=== PATIENT | female | born 1945 | race Caucasian/White ===

== ENCOUNTER 2016-10-19 04:50 | Emergency (ER) | payer MEDICARE, MEDICAID ==
--- NOTE | 2016-10-19 05:30 | EDM.PDOC ---
ED HPI ENT - General Chief Complaint: ENT Problem Stated Complaint: nosebleed Time Seen by Provider: 10/19/16 05:15 Source of Information: Reports: Patient History Limitations: Reports: No limitations - History of Present Illness INITIAL COMMENTS - FREE TEXT/NARRATIVE: PT STATES SHE HAS HAD A COUPLE NOSEBLEEDS OVER LAST FEW DAYS. USING NASAL SPRAY FOR CONGESTION. BLEEDING STARTED AGAIN THIS MORNING AND NURSING FACILITY CALLED EMS. EMS TRANSPORTED TO ER WITHOUT INCIDENT. BLEEDING STOPPED IN ROUTE. PT TAKING XARELTO. DENIES TRAUMA, WALKER, FEVER, SOB, CP, OR BLEEDING ANYWHERE ELSE Timing/Duration: Reports: Gradual onset, Intermittent, Resolved prior to arrival Severity: mild Location: Reports: right nares, left nares Worsens with: Reports: Medication Associated Symptoms: Reports: no other symptoms - Related Data Allergies/ADRs: Allergies Allergy/AdvReac Type Severity Reaction Status Date / Time No Known Drug Allergies Allergy Other Verified 04/20/16 15:18 Home Meds: Home Meds Acetaminophen [Pain Relief] 325 mg PO Q4H PRN 04/08/14 [History] Aspirin [Ecotrin] 325 mg PO DAILY@1200 04/08/14 [History] Digoxin [Lanoxin] 125 mcg PO DAILY 04/08/14 [History] FLUoxetine [PROzac] 40 mg PO DAILY 04/08/14 [History] Ferrous Sulfate 325 mg PO BID@1200,1800 04/08/14 [History] Furosemide [Lasix] 40 mg PO BID@0800,1200 04/08/14 [History] Lisinopril [Prinivil] 2.5 mg PO DAILY 04/08/14 [History] Metoprolol Tartrate 25 mg PO DAILY@1200 04/08/14 [History] Nystatin 15 gm TP BID PRN 04/08/14 [History] Nystatin/Triamcinolone Crm [Mycolog Crm] 30 gm TOP BID PRN 04/08/14 [History] Potassium Chloride 10 meq PO DAILY 04/08/14 [History] Bismuth Subsalicylate [Pepto-Bismol] 15 ml PO DAILY PRN 04/07/15 [History] Warfarin [Coumadin] 2.5 mg PO ASDIRECTED@1800 04/07/15 [History] atorvaSTATin [Lipitor] 10 mg PO 1800 04/08/15 [History] Acetaminophen [Acetaminophen Extra Strength] 500 mg PO QID PRN 04/20/16 [History ] Allopurinol [Zyloprim] 100 mg PO DAILY 04/20/16 [History] ClonazePAM [KlonoPIN] 0.5 mg PO BEDTIME 04/20/16 [History] Dextran 70/Hypromellose [Artificial Tears] 1 drop EYEBOTH DAILY 04/20/16 [ History] Glycerin/Propylene Glycol [Artificial Tears Drops] 1 drop EYEBOTH DAILY PRN 09/04 [History] Insulin Detemir [Levemir Flextouch] 70 unit SQ 0800,199904/20/16 [History] Insulin Lispro [Humalog Kwikpen U-100] 2 - 10 units SQ TIDMEALS PRN 04/20/16 [ History] Insulin Lispro [Humalog] 8 unit SQ TIDMEALS 04/20/16 [History] Liraglutide [Victoza] 1.8 mg SUBCUT 199904/20/16 [History] Loperamide [Imodium] 2 mg PO ASDIRECTED 04/20/16 [History] Multivitamin with Minerals [Multivitamins with Minerals] 1 each PO DAILY [History] Phytonadione [Vitamin K] 100 mcg PO DAILY 04/20/16 [History] hydrOXYzine HCl [Atarax] 25 mg PO TID PRN 04/20/16 [History] Levofloxacin [Levaquin] 500 mg PO Q24H #3 tablet 04/23/16 [Rx] Past Medical History HEENT History: Reports: Other (see below) 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 Cardiovascular History: Reports: Afib Musculoskeletal History: Reports: Back pain, chronic Endocrine/Metabolic History: Reports: Diabetes, type II Hematologic History: Reports: Anemia Dermatologic History: Reports: Cellulitis - Infectious Disease History Infectious Disease History: Reports: Chicken pox, Measles, Mumps - Past Surgical History Endocrine Surgical History: Reports: None Musculoskeletal Surgical History: Reports: None Dermatological Surgical History: Reports: None Social & Family History - Family History Family Medical History: Noncontributory - Tobacco Use Smoking Status *Q: Former Smoker Years of Tobacco use: 4 Used Tobacco, but Quit: Yes Month Tobacco Last Used: Aug 2010 - Alcohol Use Days Per Week of Alcohol Use: 1 Number of Drinks Per Day: 0 Total Drinks Per Week: 0 - Recreational Drug Use Recreational Drug Use: No ED ROS ENT - Review of Systems Review Of Systems: ROS reveals no pertinent complaints other than HPI. Constitutional: Reports: no symptoms HEENT: Reports: Other (EPISTAXIS) Cardiovascular: Reports: No symptoms Endocrine: Reports: no symptoms GI/Abdominal: Reports: No symptoms : Reports: no symptoms Musculoskeletal: Reports: no symptoms Skin: Reports: no symptoms Neurological: Reports: no symptoms Psychiatric: Reports: No symptoms Hematologic/Lymphatic: Reports: no symptoms Immunologic: Reports: no symptoms ED EXAM, ENT - Physical Exam Exam: See Below Exam Limited By: No limitations General Appearance: alert, WD/WN, no apparent distress Eye Exam: bilateral eye: normal inspection Nose: dried blood, other (NO SITE OF ACTIVE BLEED AND NO POSTERIOR BLEED NOTED) . No: active bleeding Mouth/Throat: Normal inspection Head: atraumatic, normocephalic Respiratory/Chest: no respiratory distress, lungs clear, normal breath sounds Cardiovascular: regular rate, rhythm GI/Abdominal: normal bowel sounds, soft, non tender Neurological: alert, oriented, normal cognition Psychiatric: normal affect, normal mood Skin: Warm, Dry, Intact, Normal color, No rash Lymphatic: no adenopathy Course - Vital Signs Last Recorded V/S: Last Vital Signs Temp 98.4 F 10/19/16 05:08 Pulse 63 10/19/16 05:08 Resp 18 10/19/16 05:08 BP 124/49 L 10/19/16 05:08 Pulse Ox 98 10/19/16 05:08 - Re-Assessments/Exams Free Text/Narrative Re-Assessment/Exam: 10/19/16 05:31 NONPETROLEUM LUBRICANT APPLIED. BLEEDING RESOLVED. PT AFEBRILE, NONTOXIC APPEARING. WILL SEND HER BACK TO NURSING FACILITY WITH SUGGESTION TO LIMIT NASAL SPRAY AND USE LUBRICANTS IN [place]AR[place] Departure - Departure Time of Disposition: 05:33 Disposition: DC/Tfer to [facility] Condition: good Clinical Impression: Acute anterior epistaxis Instructions: Nosebleed, [id number] Forms: ED Department Discharge Additional Instructions: LIMIT USE OF NASAL SPRAYS AND USE LUBRICANTS TO NARES PRN
== END 2016-10-19 06:50 ==
LOC: KA.ED 04:50
CPT/HCPCS: 99282; 99283

== ENCOUNTER 2019-05-30 08:54 | Emergency (ER) | payer MEDICARE, MEDICAID ==
[2019-05-30 09:47] LABS: ANION GAP 15.3 mmol/L (5-15); CHLORIDE,CL 107 mmol/L (98-115); SODIUM,NA 146 mmol/L (136-145)
--- NOTE | 2019-05-30 10:12 | EDM.PDOC ---
ED HPI GENERAL MEDICAL PROBLEM - General Chief Complaint: General Stated Complaint: DOESNT FEEL WELL-NAUSEATED Time Seen by Provider: 05/30/19 10:03 Source of Information: Reports: Patient, Intermediate Records History Limitations: Reports: Altered Mental Status (Dementia at baseline) - History of Present Illness INITIAL COMMENTS - FREE TEXT/NARRATIVE: Patient is a 74-year-old female who presents to the emergency department this morning via EMS from [address] [place] [address]. Per nursing staff at the facility, they stated that patient had bad odor to her urine and seemed to becoming more confused. I did not receive a phone call from the provider who authorized transfer. Patient presents to the ER with underlying dementia, obvious confusion, no fever. Patient denies chest pain, abdominal pain, or shortness of breath. Onset: Gradual Duration: Day(s): Improves with: Reports: None Worsens with: Reports: None Associated Symptoms: Reports: No Other Symptoms. Denies: Fever/Chills - Related Data Allergies Allergy/AdvReac Type Severity Reaction Status Date / Time No Known Drug Allergies Allergy Other Verified 05/30/19 09:39 Home Meds: Home Meds Acetaminophen [Pain Relief] 325 mg PO Q4H PRN 04/08/14 [History] Aspirin [Ecotrin EC] 325 mg PO DAILY@1200 04/08/14 [History] Digoxin [Lanoxin] 125 mcg PO DAILY 04/08/14 [History] FLUoxetine [PROzac] 40 mg PO DAILY 04/08/14 [History] Ferrous Sulfate 325 mg PO BID@1200,1800 04/08/14 [History] Furosemide [Lasix] 40 mg PO BID@0800,1200 04/08/14 [History] Lisinopril [Prinivil] 2.5 mg PO DAILY 04/08/14 [History] Metoprolol Tartrate 25 mg PO DAILY@1200 04/08/14 [History] Nystatin 15 gm TP BID PRN 04/08/14 [History] Nystatin/Triamcinolone Crm [Mycolog Crm] 30 gm TOP BID PRN 04/08/14 [History] Potassium Chloride 10 meq PO DAILY 04/08/14 [History] Bismuth Subsalicylate [Pepto-Bismol] 15 ml PO DAILY PRN 04/07/15 [History] atorvaSTATin [Lipitor] 10 mg PO 1800 08/20/15 [History] Allopurinol [Zyloprim] 100 mg PO DAILY 04/20/16 [History] ClonazePAM [KlonoPIN] 0.5 mg PO BEDTIME 04/20/16 [History] Dextran 70/Hypromellose [Artificial Tears] 1 drop EYEBOTH DAILY 04/20/16 [ History] Glycerin/Propylene Glycol [Artificial Tears Drops] 1 drop EYEBOTH DAILY PRN 09/04 [History] Liraglutide [Victoza] 1.8 mg SUBCUT 2000 04/20/16 [History] Loperamide [Imodium] 2 mg PO ASDIRECTED 04/20/16 [History] Multivitamin with Minerals [Multivitamins with Minerals] 1 each PO DAILY [History] ClonazePAM [KlonoPIN] 0.5 mg PO DAILY PRN 10/19/16 [History] Insulin Glarg,Human.Rec.Analog [LantUS Solostar] 70 units SUBCUT BID 10/19/16 [ History] Rivaroxaban [Xarelto] 20 mg PO DAILY 10/19/16 [History] Triamcinolone Acetonide [Kenalog 0.1% Crm] 1 applic TOP BID 10/19/16 [History] Cephalexin [Keflex] 500 mg PO TID #21 capsule 05/30/19 [Rx] Past Medical History HEENT History: Reports: Other (See Below) 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 Cardiovascular History: Reports: Afib Genitourinary History: Reports: UTI, Recurrent [employer] History: Reports: Dysfunctional Uterine Bleeding Musculoskeletal History: Reports: Back Pain, Chronic Psychiatric History: Reports: Anxiety Endocrine/Metabolic History: Reports: Diabetes, Type II Hematologic History: Reports: Anemia Dermatologic History: Reports: Cellulitis - Infectious Disease History Infectious Disease History: Reports: Chicken Pox, Measles, Mumps - Past Surgical History Cardiovascular Surgical History: Reports: Other (See Below) Social & Family History - Family History Family Medical History: Noncontributory - Tobacco Use Smoking Status *Q: Former Smoker Used Tobacco, but Quit: Yes Month/Year Tobacco Last Used: na Second Hand Smoke Exposure: No - Caffeine Use Caffeine Use: Reports: Soda - Recreational Drug Use Recreational Drug Use: No ED ROS GENERAL - Review of Systems Review Of Systems: ROS reveals no pertinent complaints other than HPI. Constitutional: Reports: No Symptoms HEENT: Reports: No Symptoms Respiratory: Reports: No Symptoms Cardiovascular: Reports: No Symptoms Endocrine: Reports: No Symptoms GI/Abdominal: Reports: No Symptoms : Reports: Other (Urine odor) Musculoskeletal: Reports: No Symptoms Skin: Reports: No Symptoms Neurological: Reports: Confusion, Pre-Existing Deficit Psychiatric: Reports: No Symptoms Hematologic/Lymphatic: Reports: No Symptoms ED EXAM, GENERAL - Physical Exam Exam: See Below Exam Limited By: Altered Mental Status (Dementia at baseline) General Appearance: Alert, WD/WN, No Apparent Distress Throat/Mouth: Normal Inspection, Normal Oropharynx, No Airway Compromise Head: Atraumatic, Normocephalic Respiratory/Chest: No Respiratory Distress, Lungs Clear, Normal Breath Sounds, No Accessory Muscle Use, Chest Non-Tender Cardiovascular: Irregularly Irregular (Chronic A. fib) GI/Abdominal: Normal Bowel Sounds, Soft, Non-Tender Back Exam: Normal Inspection. No: CVA Tenderness (L), CVA Tenderness (R) Extremities: Normal Inspection, No Pedal Edema Neurological: Alert, Confused, Other (Baseline dementia) Psychiatric: Normal Affect, Normal Mood Skin Exam: Warm, Dry, Intact, Normal Color, No Rash Course - Vital Signs Last Recorded V/S: Last Vital Signs Temp 97.7 F 05/30/19 08:55 Pulse 85 05/30/19 08:55 Resp 16 05/30/19 08:55 BP 138/83 05/30/19 08:55 Pulse Ox 96 05/30/19 08:55 - Orders/Labs/Meds Orders: Active Orders 24 hr Category Date Time Status CULTURE URINE [RM] Routine Lab 05/30/19 09:15 Received Labs: Laboratory Tests 05/30/19 05/30/19 05/30/19 Range/Units 09:15 09:15 09:15 WBC 11.19 H (5.00-10.00) 10^3/uL RBC 3.94 (3.80-5.50) 10^6/uL Hgb 12.0 (12.0-16.0) g/dL Hct 36.3 L (37.0-47.0) % MCV 92.1 H D (82.0-92.0) fL MCH 30.5 (27.0-31.0) pg MCHC 33.1 (32.0-36.0) g/dL RDW 13.5 (11.5-14.5) % Plt Count 218 (150-400) 10^3/uL MPV 9.6 (7.4-10.4) fL Immature Gran % (Auto) 0.2 (0.0-5.0) % Neut % (Auto) 83.3 H (50.0-70.0) % Lymph % (Auto) 9.7 L (20.0-40.0) % [place] % (Auto) 6.4 (2.0-8.0) % Eos % (Auto) 0.2 L (1.0-3.0) % Baso % (Auto) 0.2 (0.0-1.0) % Immature Gran # (Auto) 0.02 (0.00-0.50) 10^3/uL Neut # (Auto) 9.32 H (2.50-7.00) 10^3/uL Lymph # (Auto) 1.09 (1.00-4.00) 10^3/uL [place] # (Auto) 0.72 (0.10-0.80) 10^3/uL Eos # (Auto) 0.02 L (0.10-0.30) 10^3/uL Baso # (Auto) 0.02 (0.00-0.10) 10^3/uL Sodium 146 H (136-145) mmol/L Potassium 3.9 (3.3-5.3) mmol/L Chloride 107 (98-115) mmol/L Carbon Dioxide 27.6 (21.0-32.0) mmol/L Anion Gap 15.3 H (5-15) mmol/L BUN 41 H (6-25) mg/dL Creatinine 1.64 H (0.51-1.17) mg/dL Est Cr Clr Drug Dosing TNP Estimated GFR (MDRD) 31 mL/min Glucose 129 H (75 - 99) mg/dL POC Glucose (74-106) mg/dl Calcium 9.7 (8.7-10.3) mg/dL Total Bilirubin 0.5 (0.2-1.0) mg/dL AST 31 (15-37) U/L ALT 23 (12-78) U/L Alkaline Phosphatase 88 (46-116) IU/L Total Protein 7.3 (6.4-8.2) g/dL Albumin 3.63 (3.00-4.80) g/dL Specimen Type Urin[place]ath Urine Color Light yellow (YELLOW) Urine Appearance Slightly cloudy H (CLEAR) Urine pH 7.0 (5.0-9.0) Ur Specific [place] 1.020 (1.005-1.030) Urine Protein 100 H (NEGATIVE) mg/dL Urine Glucose (UA) Negative (NEGATIVE) mg/dL Urine Ketones 15 H (NEGATIVE) mg/dL Urine Occult Blood Moderate H (NEGATIVE) Urine Nitrite Negative (NEGATIVE) Urine Bilirubin Negative (NEGATIVE) Urine Urobilinogen 0.2 (0.2-1.0) E.U./dL Ur Leukocyte Esterase Moderate H (NEGATIVE) 05/30/19 Range/Units 09:17 WBC (5.00-10.00) 10^3/uL RBC (3.80-5.50) 10^6/uL Hgb (12.0-16.0) g/dL Hct (37.0-47.0) % MCV (82.0-92.0) fL MCH (27.0-31.0) pg MCHC (32.0-36.0) g/dL RDW (11.5-14.5) % Plt Count (150-400) 10^3/uL MPV (7.4-10.4) fL Immature Gran % (Auto) (0.0-5.0) % Neut % (Auto) (50.0-70.0) % Lymph % (Auto) (20.0-40.0) % [place] % (Auto) (2.0-8.0) % Eos % (Auto) (1.0-3.0) % Baso % (Auto) (0.0-1.0) % Immature Gran # (Auto) (0.00-0.50) 10^3/uL Neut # (Auto) (2.50-7.00) 10^3/uL Lymph # (Auto) (1.00-4.00) 10^3/uL [place] # (Auto) (0.10-0.80) 10^3/uL Eos # (Auto) (0.10-0.30) 10^3/uL Baso # (Auto) (0.00-0.10) 10^3/uL Sodium (136-145) mmol/L Potassium (3.3-5.3) mmol/L Chloride (98-115) mmol/L Carbon Dioxide (21.0-32.0) mmol/L Anion Gap (5-15) mmol/L BUN (6-25) mg/dL Creatinine (0.51-1.17) mg/dL Est Cr Clr Drug Dosing Estimated GFR (MDRD) mL/min Glucose (75 - 99) mg/dL POC Glucose 119 H (74-106) mg/dl Calcium (8.7-10.3) mg/dL Total Bilirubin (0.2-1.0) mg/dL AST (15-37) U/L ALT (12-78) U/L Alkaline Phosphatase (46-116) IU/L Total Protein (6.4-8.2) g/dL Albumin (3.00-4.80) g/dL Specimen Type Urine Color (YELLOW) Urine Appearance (CLEAR) Urine pH (5.0-9.0) Ur Specific [place] (1.005-1.030) Urine Protein (NEGATIVE) mg/dL Urine Glucose (UA) (NEGATIVE) mg/dL Urine Ketones (NEGATIVE) mg/dL Urine Occult Blood (NEGATIVE) Urine Nitrite (NEGATIVE) Urine Bilirubin (NEGATIVE) Urine Urobilinogen (0.2-1.0) E.U./dL Ur Leukocyte Esterase (NEGATIVE) Meds: Medications Discontinued Medications Generic Name Dose Route Start Last Admin Trade Name Freq PRN Reason Stop Dose Admin Ceftriaxone Sodium 1 gm 05/30/19 10:05 Rocephin IVPUSH 05/30/19 10:06 ONETIME ONE - Re-Assessments/Exams Free Text/Narrative Re-Assessment/Exam: 05/30/19 10:12 Patient afebrile, vital signs stable, 1 g Rocephin IV given. Prescription for Keflex submitted. Patient will be transferred back to [address] [place] [address] and be followed by a [facility] provider Departure - Departure Time of Disposition: 10:13 Disposition: DC/Tfer to Medicaid [facility] Fac [facility] Condition: Good Clinical Impression: UTI, Urinary tract infectious disease - Discharge Information Prescriptions: Cephalexin [Keflex] 500 mg PO TID #21 capsule Instructions: Urinary Tract Infection, Adult, [id number], Urine Culture and Sensitivity Testing Referrals: Nate Hale MD [Primary Care Provider] - Forms: ED Department Discharge Additional Instructions: Follow-up at [facility]. Take medication as directed. Return to emergency department if symptoms worsen. - My Orders Last 24 Hours: My Active Orders 05/30/19 09:15 CULTURE URINE [RM] Routine - Assessment/Plan Last 24 Hours: My Active Orders 05/30/19 09:15 CULTURE URINE [RM] Routine Assessment:: UTI Plan: Return to nursing facility
[2019-05-30] MEDS: cefTRIAXone 1 GM Vial IVPUSH ONE (10:22)
[2019-05-30 10:31] VITALS: BP 127/86; PULSE 100
== END 2019-05-30 11:27 ==
LOC: KA.ED 08:54
DX: N39.0 Urinary tract infection, site not specified (principal); I48.91 Unspecified atrial fibrillation; F41.9 Anxiety disorder, unspecified; E11.9 Type 2 diabetes mellitus without complications; D64.9 Anemia, unspecified; Z87.891 Personal history of nicotine dependence; Z79.82 Long term (current) use of aspirin; Z79.899 Other long term (current) drug therapy; Z79.4 Long term (current) use of insulin
CPT/HCPCS: 36415; 80053; 81003; 82962; 85025; 87086; 99284; 99285; J0696